=== PATIENT | male | born 1955 | race Caucasian/White ===

== ENCOUNTER 2024-06-29 17:04 | Observation (INO) | payer OTHER, MEDICARE ==
[~2024-06-29] VITALS: Ht 182.9 cm; Wt 113.3 kg
[2024-06-29] MEDS ORDERED: CELECOXIB200 MG PO (17:18)
[2024-06-29] MEDS ORDERED: TAMSULOSIN HCL0.4 MG PO (17:19)
[2024-06-29] MEDS ORDERED: HUMALOG100 UNIT/2 SUB-Q (17:19)
[2024-06-29] MEDS ORDERED: LOSARTAN-HCTZ1 EAC2 PO (17:19)
[2024-06-29] MEDS ORDERED: ATORVASTATIN CA80 MG PO (17:19)
[2024-06-29] MEDS ORDERED: SEMGLEE (Y100 UNIT/2 SUB-Q (17:19)
[2024-06-29] MEDS ORDERED: PIOGLITAZONE HC15 MG PO (17:19)
[2024-06-29 17:25] LABS: HEMOGLOBIN 13.7 g/dL (12.0-18.0)
[2024-06-29 17:27] LABS: BASOPHILS 0.8 % (0-2); EOSINOPHILS 5.2 % (0-6); HEMATOCRIT 38.2 % (35.0-50.0); LYMPHOCYTES 32.6 % (24-44); MCH 35.8 (27-36); MCHC 35.9 g/dl (30-36); MCV 99.6 fl (81-99); MONOCYTES 9.9 % (0-12); NEUTROPHILS 51.5 % (39-80); PLATELET COUNT 132 K/uL (140-440); RBC 3.83 M/ul (4.3-5.7)
[2024-06-29 17:41] LABS: ALBUMIN 3.5 g/dL (3.4-5.0); ALBUMIN/GLOBULIN RATIO 0.95 (1.1-2.4); ANION GAP 12.3 (7-21); CALCIUM 9.2 mg/dL (8.5-10.1); CREATININE, SERUM 1.4 mg/dL (0.70-1.30); MAGNESIUM 1.2 mg/dL (1.8-2.4); POTASSIUM 3.3 mmol/L (3.5-5.1); PROTEIN, TOTAL 7.2 g/dL (6.4-8.2)
[2024-06-29] MEDS ORDERED: GLUCAGON,HUMAN RECOMBINANT 1 MG/ML VIAL SUB-Q PRN (19:15)
[2024-06-29] MEDS ORDERED: DEXTROSE 50% 50 ML SYR IV PRN ×2 (19:15)
[2024-06-29] MEDS ORDERED: ondansetron HCL 4 MG/2 ML VIAL IV PRN (19:15)
[2024-06-29] MEDS ORDERED: LACTATED RINGER'S 1,000 ML IV SCH (19:15)
[2024-06-29] MEDS ORDERED: bisacodyL 10 MG SUPP PR PRN (19:15)
[2024-06-29] MEDS ORDERED: IBLOOD GLUCOSE TEST STRIP 1 EA TEST XX PRN (19:15)
[2024-06-29] MEDS ORDERED: ACETAMINOPHEN 325 MG TAB PO PRN (19:15)
[2024-06-29] MEDS ORDERED: DEXTROSE 5% 1,000 ML IV PRN (19:15)
[2024-06-29] MEDS ORDERED: LABETALOL HCL 100 MG/20 ML MDV IV PRN (19:15)
[2024-06-29 20:09] VITALS: BP 122/82
[2024-06-29] MEDS ORDERED: METFORMIN HCL500 MG PO (20:14)
[2024-06-29] MEDS ORDERED: MAGNESIUM SULFATE 2 GM/50 ML BAG IV ONE (20:15)
[2024-06-29] MEDS ORDERED: POTASSIUM CHLORIDE 10 MEQ TABCR PO ONE (20:45)
[2024-06-29] MEDS ORDERED: IBLOOD GLUCOSE TEST STRIP 1 EA TEST VI SCH (21:00)
[2024-06-29] MEDS ORDERED: MELATONIN 3 MG TAB PO PRN (21:00)
[2024-06-29] MEDS ORDERED: INSULIN LISPRO 100 UNIT/ML ML SUB-Q SCH (21:00)
[2024-06-29] MEDS ORDERED: HEParin SOD (PORCINE) 5,000 UNIT/ML SDV SUB-Q SCH (21:00)
[2024-06-30 01:25] VITALS: BP 123/68
[2024-06-30 01:53] VITALS: BP 123/68
[2024-06-30 05:10] VITALS: BP 139/92
[2024-06-30 05:18] LABS: BASOPHILS 0.6 % (0-2); EOSINOPHILS 3.3 % (0-6); HEMATOCRIT 33.8 % (35.0-50.0); HEMOGLOBIN 12.3 g/dL (12.0-18.0); LYMPHOCYTES 20.9 % (24-44); MCHC 36.3 g/dl (30-36); MCV 99.3 fl (81-99); MONOCYTES 8.1 % (0-12); NEUTROPHILS 67.1 % (39-80); PLATELET COUNT 95 K/uL (140-440); RBC 3.41 M/ul (4.3-5.7); RDW 13.5 (10.5-15.0)
[2024-06-30 05:25] LABS: BILIRUBIN, URINE NEGATIVE (negative); BLOOD/HGB, URINE NEGATIVE (Negative); KETONE, URINE NEGATIVE (Negative); LEUK ESTERASE, URINE NEGATIVE (negative); NITRITE, URINE NEGATIVE (negative)
[2024-06-30 05:33] LABS: ANION GAP 11.1 (7-21); BUN/CREATININE RATIO 12.31 (6.0-28.6); CALCIUM 8.9 mg/dL (8.5-10.1); CREATININE, SERUM 1.38 mg/dL (0.70-1.30); MAGNESIUM 1.6 mg/dL (1.8-2.4); PHOSPHORUS, INORGANIC 3.7 mg/dL (2.5-4.9); POTASSIUM 4.1 mmol/L (3.5-5.1)
[2024-06-30 05:40] VITALS: BP 139/92
[2024-06-30 06:00] LABS: AMPHETAMINES, URINE NEGATIVE (NEGATIVE); BARBITURATES, URINE NEGATIVE (NEGATIVE); BENZODIAZEPINE, URINE NEGATIVE (NEGATIVE); BUPRENORPHINE, URINE NEGATIVE (NEGATIVE); CANNABINOID, URINE POSITIVE (NEGATIVE); COCAINE, URINE NEGATIVE (NEGATIVE); ECSTASY, URINE NEGATIVE (NEGATIVE); FENTANYL, URINE NEGATIVE (NEGATIVE); METHADONE, URINE NEGATIVE (NEGATIVE); OPIATES, URINE NEGATIVE (NEGATIVE); OXYCODONE, URINE NEGATIVE (NEGATIVE); PHENCYCLIDINE, URINE NEGATIVE (NEGATIVE)
[2024-06-30] MEDS ORDERED: MAGNESIUM SULFATE 2 GM/50 ML BAG IV ONE (09:00)
[2024-06-30] MEDS ORDERED: INSULIN GLARGINE-YFGN 100 UNIT/ML ML SUB-Q SCH (09:00)
[2024-06-30] MEDS ORDERED: CELECOXIB200 MG PO (09:44)
[2024-06-30 09:49] VITALS: BP 158/83
[2024-06-30] MEDS ORDERED: PHARMACY RENAL DOSE ADJUSTMENT 1 DOSE MISC PO SCH (12:00)
[2024-06-30 13:27] VITALS: BP 158/83
[2024-06-30] MEDS ORDERED: ATORVASTATIN 40 MG TAB PO SCH (21:00)
--- NOTE | 2024-07-03 20:23 | EKG ---
[facility] [address] [facility] [place] [address] Signed Normal sinus rhythm Septal infarct , age undetermined Abnormal ECG No previous ECGs available Confirmed by Amy Huerta DO ([id number]) on 07/03/2024 8:23:40 PM Electronically Signed By: AMY HUERTA DO 07/03/242022 PATIENT NAME: WILLIE MICHELLE Electrocardiogram DATE OF : 55 PHYSICIAN: AMY HUERTA DO REPORT #: [id number] REPORT IS CONFIDENTIAL AND NOT TO BE RELEASED WITHOUT AUTHORIZATION
== END 2024-06-30 14:30 | disposition home or self-care (01) ==
LOC: ED 17:04 → MS 17:06
PROVIDERS: Emergency Medicine; ADMIT Student in an Organized Health Care Education/Training Program; ATTEND Student in an Organized Health Care Education/Training Program
DX: R55 Syncope and collapse (principal); T38.3X5A Adverse effect of insulin and oral hypoglycemic [antidiabetic] drugs, initial encounter; E83.42 Hypomagnesemia; N17.9 Acute kidney failure, unspecified; E11.9 Type 2 diabetes mellitus without complications; I10 Essential (primary) hypertension; E78.5 Hyperlipidemia, unspecified; Z66 Do not resuscitate; Z86.73 Personal history of transient ischemic attack (TIA), and cerebral infarction without residual deficits; Z79.4 Long term (current) use of insulin; Z79.899 Other long term (current) drug therapy
CPT/HCPCS: 36415; 70450; 80048; 80053; 80307; 81003; 83036; 83735; 84100; 84484; 85025; 93005; 93010; 96365; 96372; 96376; 97161; 99285-25; A9270; G0378; J1644; J1815; J3475; J7121